=== PATIENT | female | born 1980 | race Two or more races ===

== ENCOUNTER 2022-01-13 05:50 | Day surgery (SDC) | payer OTHER | END 2022-01-13 09:45 | disposition home or self-care (01) | LOC: AMB-ENDOS 05:50 → CIR.AMB 15:42 | PROVIDERS: ATTEND Surgery | DX: K29.80 Duodenitis without bleeding (principal); K29.70 Gastritis, unspecified, without bleeding; K44.9 Diaphragmatic hernia without obstruction or gangrene; Z20.822 Contact with and (suspected) exposure to COVID-19; E66.9 Obesity, unspecified; I10 Essential (primary) hypertension; K76.0 Fatty (change of) liver, not elsewhere classified ==

== ENCOUNTER 2023-11-24 06:56 | Outpatient (CLI) | payer OTHER ==
[2023-11-28] MEDS ORDERED: LEVO-T50 MCG (09:02)
== END 2023-11-24 07:10 | disposition home or self-care (01) ==
LOC: MRI 06:56
PROVIDERS: ATTEND Surgery
DX: K80.10 Calculus of gallbladder with chronic cholecystitis without obstruction (principal)
CPT/HCPCS: 74181

== ENCOUNTER 2023-12-06 05:00 | Day surgery (SDC) | payer OTHER ==
[2023-11-28 10:07] LABS: URINE APPEARANCE Clear; URINE BILIRRUBIN Negative (NEGATIVE); URINE BLOOD Negative; URINE COLOR Yellow; URINE GLUCOSE Negative (NEGATIVE); URINE LEUKOCYTE Negative; URINE NITRATE Negative; URINE PROTEIN Negative (NEGATIVE)
[2023-11-28 10:11] LABS: URINE BACTERIA 147.4 uL (0.0-1933); URINE EPITHELIAL CELLS 5.7 uL (0.0-38.8); URINE RBC 8.6 uL (0.0-20.8); URINE WBC 5.4 uL (0.0-23.2)
[2023-11-28 10:30] LABS: HEMATOCRIT 30.7 % (36.0-45.00); HEMOGLOBIN 10.3 g/dL (12.0-15.00); MEAN CELL VOLUME 76.1 fL (80.00-100.00); MEAN CORPUSCULAR HEMOGLOBIN 25.7 pg (27.00-32.0); MEAN CORPUSCULAR HGB CONC 33.7 g/dl (32.0-36.0); PLATELET COUNT 300 K/uL (150-450); RED BLOOD COUNT 4.03 M/uL (4.00-6.00); RED CELL DISTRIBUTION WIDTH 15.6 % (11.5-14.5)
[2023-11-28 10:38] LABS: INR 1.04; PARTIAL THROMBOPLASTIN TIME 29.1 SECONDS (22.0-34.0); PROTHROMBIN TIME 10.9 SECONDS (9.0-11.5)
[2023-11-28 10:46] LABS: ALBUMIN 3.6 gm/dL (3.4-5.0); BILIRUBIN TOTAL 1.11 mg/dL (0.3-1.2); BILIRUBIN,CONJUGATED 0.25 mg/dL (0.0-0.2); BILIRUBIN,UNCONJUGATED 0.86 mg/dL (0.0-0.6); CALCIUM 8.9 mg/dL (8.5-10.1); CREATININE SERUM 0.46 mg/dL (0.55-1.02); GFR 150.45; GLOBULINA 3.1 G/DL (2.4-3.5); POTASSIUM 4.16 mEq/L (3.5-5.1); TOTAL PROTEIN 6.7 gm/dL (6.4-8.2)
[~2023-12-06 05:00] MED LIST: LEVO-T50 MCG
[2023-12-06] MEDS ORDERED: ENOXAPARIN SODIUM 40 MG/0.4 ML SYRINGE SUBCUTANEO ONE ×2 (07:22→09:45)
[2023-12-06] MEDS ORDERED: CEFAZOLIN SODIUM 1,000 MG VIAL ONE (07:22)
[2023-12-06] MEDS ORDERED: BUPIVACAINE HCL/PF 0.5% 30ML ML ONE (07:32)
[2023-12-06] MEDS ORDERED: TRAM1TAB98 PO ×2 (08:56)
[2023-12-06] MEDS ORDERED: PROTONIX40 MG PO ×2 (08:56)
[2023-12-06] MEDS ORDERED: MIRALAX510 GM PO ×2 (08:56)
[2023-12-06] MEDS ORDERED: CIPRO500 MG PO ×2 (08:57)
[2023-12-06] MEDS ORDERED: BUPIVACAINE HCL 30 ML VIAL IJ ONE (09:45)
[2023-12-06] MEDS ORDERED: CEFAZOLIN SODIUM 1,000 MG VIAL IV ONE (09:45)
== END 2023-12-06 13:45 | disposition home or self-care (01) ==
LOC: CIR.AMB 05:00
PROVIDERS: ATTEND Surgery
DX: K80.10 Calculus of gallbladder with chronic cholecystitis without obstruction (principal); Z88.2 Allergy status to sulfonamides; Z88.1 Allergy status to other antibiotic agents